=== PATIENT | male | born 1990 | race Hispanic/Latino ===

== ENCOUNTER 2018-10-11 09:00 | Emergency (ER) | payer OTHER | END 2018-10-11 09:36 | disposition home or self-care (01) | LOC: EDH 09:00 | DX: J06.9 Acute upper respiratory infection, unspecified (principal); H65.03 Acute serous otitis media, bilateral; Z72.0 Tobacco use | CPT/HCPCS: 99281 ==

== ENCOUNTER 2019-04-09 16:43 | Emergency (ER) | payer SELFPAY ==
[2019-04-09] MEDS ORDERED: LIDOCAINE 2%-EPI 1:200,000 20 ML VIAL IJ ONE (16:57)
== END 2019-04-09 18:38 | disposition home or self-care (01) ==
LOC: EDH 16:43
DX: S90.852A Superficial foreign body, left foot, initial encounter (principal); S90.851A Superficial foreign body, right foot, initial encounter; Z72.0 Tobacco use; X58.XXXA Exposure to other specified factors, initial encounter; Y93.89 Activity, other specified; Y92.814 Boat as the place of occurrence of the external cause; Y99.8 Other external cause status
CPT/HCPCS: 73630 ×2; 99284; J3490